=== PATIENT | female | born 1980 | race Asian ===

== ENCOUNTER 2016-11-23 07:59 | Emergency (ER) | payer OTHER ==
--- NOTE | 2016-11-23 08:19 | PDOC ---
History of Present Illness - General Chief Complaint: Respiratory Stated Complaint: COUGH X 4 DAYS Time Seen by Provider: 11/23/16 08:04 History Source: Patient Exam Limitations: No Limitations - History of Present Illness Initial Comments: 11/23/16 08:14 36-year-old female with past medical history of Crohn's disease, not currently on medications, presents to the emergency department for productive cough for 4 days. Denies fevers or chills. Patient is concerned as she is currently breast- feeding an infant. Reports possible sick contacts. Past History - Past Medical History Allergies/Adverse Reactions: Allergies Allergy/AdvReac Type Severity Reaction Status Date / Time No Known Allergies Allergy Verified 11/23/16 08:01 Home Medications: Ambulatory Orders Azithromycin 250 mg PO DAILY #6 tablet 11/23/16 Other medical history: CROHNS DISEASE - Psycho/Social/Smoking Cessation Hx Anxiety: No Suicidal Ideation: No Smoking History: Never smoked Have you smoked in the past 12 months: No Information on smoking cessation initiated: No Hx Alcohol Use: No Drug/Substance Use Hx: No Substance Use Type: None Review of Systems - Review of Systems Able to Perform ROS?: Yes Comments:: 11/23/16 08:17 GENERAL/CONSTITUTIONAL: No fever, weakness. HEAD, EYES, EARS, NOSE AND THROAT: No change in vision. No ear pain or discharge. No sore throat. CARDIOVASCULAR: No chest pain or shortness of breath. RESPIRATORY: +cough. No wheezing, or hemoptysis. GASTROINTESTINAL: No abdominal pain, nausea, vomiting, diarrhea, or decreased PO intolerance. GENITOURINARY: No dysuria, frequency, or change in urination. MUSCULOSKELETAL: No joint or muscle swelling or pain. No neck or back pain. SKIN: No rash NEUROLOGIC: No headache, vertigo, loss of consciousness, or change in strength/ sensation. ENDOCRINE: No increased thirst. No abnormal weight change. HEMATOLOGIC/LYMPHATIC: No anemia, easy bleeding, or history of blood clots. ALLERGIC/IMMUNOLOGIC: No hives or skin allergy. *Physical Exam - Vital Signs Last Vital Signs Temp Pulse Resp BP Pulse Ox 98.3 F 93 H 12 93/69 100 11/23/16 08:03 11/23/16 08:03 11/23/16 08:03 11/23/16 08:03 11/23/16 08:03 - Physical Exam Comments: 11/23/16 08:17 GENERAL: Awake, alert, and fully oriented, in no acute distress. HEAD: No signs of trauma EYES: PERRLA, EOMI, sclera anicteric, conjunctiva clear ENT: Auricles normal inspection, hearing grossly normal, nares patent, oropharynx clear without exudates. NECK: Normal ROM, supple, no lymphadenopathy, JVD, or masses LUNGS: Breath sounds equal, clear to auscultation bilaterally. No wheezes, and no crackles HEART: Regular rate and rhythm, normal S1 and S2, no murmurs, rubs or gallops ABDOMEN: Soft, nontender, normoactive bowel sounds. No guarding, no rebound. No masses EXTREMITIES: Normal range of motion, no edema. No clubbing or cyanosis. No cords, erythema, or tenderness NEUROLOGICAL: Cranial nerves II through XII grossly intact. Normal speech, normal gait SKIN: Warm, Dry, normal turgor, no rashes or lesions noted. Medical Decision Making - Medical Decision Making 11/23/16 08:17 Vital Signs Temp Pulse Resp BP Pulse Ox 98.3 F 93 H 12 93/69 100 11/23/16 08:03 11/23/16 08:03 11/23/16 08:03 11/23/16 08:03 11/23/16 08:03 Not concerned about BP as patient is thin and small. She is nontoxic appearing. Likely viral syndrome. However, given pt is a chron's and , I instructed pt that if she continues to feel ill for an additional 48 hours, she can start an azithromycin for bronchitis. Instructed mom to pump and dump while on azithromycin. Supportive care. I discussed the physical exam findings, ancillary test results and final diagnoses with the patient. I answered all of the patient's questions. The patient was satisfied with the care received and felt comfortable with the discharge plan and treatment plan. The patient will call their primary care physician within 24 hours to arrange follow-up and will return to the Emergency Department with any new, persistant or worsening symptoms. *DC/Admit/Observation/Transfer Diagnosis at time of Disposition: Viral syndrome - Discharge Dispostion Disposition: HOME Condition at time of disposition: Stable Admit: No - Prescriptions Prescriptions: Azithromycin 250 mg PO DAILY #6 tablet - Patient Instructions Printed Discharge Instructions: DI for Viral Syndrome Additional Instructions: 650 mg tylenol every 4 hours as needed for fever/body aches. If you continue to have symptoms for an additional 48 hour, take the azithromycin. While on the azithromycin, please pump and dump. Follow up with your primary care physician.
[2016-11-23 08:25] VITALS: BP 93/69; PULSE 93; TEMP 98.3; BMI 21.5
== END 2016-11-23 08:26 | disposition home or self-care (01) ==
LOC: FER 07:59
DX: B34.9 Viral infection, unspecified (principal); K50.90 Crohn's disease, unspecified, without complications
CPT/HCPCS: 99281-25

== ENCOUNTER 2016-12-14 09:02 | Emergency (ER) | payer OTHER ==
[2016-12-14 09:08] VITALS: BP 110/67; PULSE 82; TEMP 99.1; BMI 21.0
--- NOTE | 2016-12-14 09:14 | PDOC ---
History of Present Illness - General Chief Complaint: Respiratory Stated Complaint: COUGH, COLD SX, SCRATCHY THROAT Time Seen by Provider: 12/14/16 09:04 History Source: Patient Exam Limitations: No Limitations - History of Present Illness Initial Comments: 12/14/16 09:15 36 year old female c/ hx of chron's disease p/w dry cough and left earache x 5 days. +sick contacts with daughter and . Denies fevers. Has not taken any medications for the symptoms. Came in for an evaluation. Past History - Past Medical History Allergies/Adverse Reactions: Allergies Allergy/AdvReac Type Severity Reaction Status Date / Time No Known Allergies Allergy Verified 12/14/16 09:03 Home Medications: Ambulatory Orders NK [No Known Home Medication] 12/14/16 GI Disorders: Yes (CROHN'S) - Psycho/Social/Smoking Cessation Hx Anxiety: No Suicidal Ideation: No Smoking History: Never smoked Have you smoked in the past 12 months: No Hx Alcohol Use: No Drug/Substance Use Hx: No Substance Use Type: None Review of Systems - Review of Systems Able to Perform ROS?: Yes Comments:: 12/14/16 09:16 GENERAL/CONSTITUTIONAL: No fever, weakness. HEAD, EYES, EARS, NOSE AND THROAT: No change in vision or discharge. No sore throat. +Left ear ache. CARDIOVASCULAR: No chest pain or shortness of breath. RESPIRATORY: +dry cough. No wheezing, or hemoptysis. GASTROINTESTINAL: No abdominal pain, nausea, vomiting, diarrhea, or decreased PO intolerance. GENITOURINARY: No dysuria, frequency, or change in urination. MUSCULOSKELETAL: No joint or muscle swelling or pain. No neck or back pain. SKIN: No rash NEUROLOGIC: No headache, vertigo, loss of consciousness, or change in strength/ sensation. ENDOCRINE: No increased thirst. No abnormal weight change. HEMATOLOGIC/LYMPHATIC: No anemia, easy bleeding, or history of blood clots. ALLERGIC/IMMUNOLOGIC: No hives or skin allergy. *Physical Exam - Vital Signs Last Vital Signs Temp Pulse Resp BP Pulse Ox 99.1 F 82 18 110/67 99 12/14/16 09:02 12/14/16 09:02 12/14/16 09:02 12/14/16 09:02 12/14/16 09:02 - Physical Exam Comments: 12/14/16 09:17 GENERAL: Awake, alert, and fully oriented, in no acute distress. HEAD: No signs of trauma EYES: PERRLA, EOMI, sclera anicteric, conjunctiva clear ENT: Auricles normal inspection, hearing grossly normal, nares patent, oropharynx clear without exudates. TMs clear bilaterally. No exudates. Oropharynx normal and clear. NECK: Normal ROM, supple, no lymphadenopathy, JVD, or masses LUNGS: Breath sounds equal, clear to auscultation bilaterally. No wheezes, and no crackles HEART: Regular rate and rhythm, normal S1 and S2, no murmurs, rubs or gallops ABDOMEN: Soft, nontender, normoactive bowel sounds. No guarding, no rebound. No masses EXTREMITIES: Normal range of motion, no edema. No clubbing or cyanosis. No cords, erythema, or tenderness NEUROLOGICAL: Cranial nerves II through XII grossly intact. Normal speech, normal gait SKIN: Warm, Dry, normal turgor, no rashes or lesions noted. Medical Decision Making - Medical Decision Making 12/14/16 09:17 Vital Signs Temp Pulse Resp BP Pulse Ox 99.1 F 82 18 110/67 99 12/14/16 09:02 12/14/16 09:02 12/14/16 09:02 12/14/16 09:02 12/14/16 09:02 Patient's history and physical is suggestive of a viral syndrome. Physical exam is unremarkable. Supportive care. Return precautions given. I discussed the physical exam findings, ancillary test results and final diagnoses with the patient. I answered all of the patient's questions. The patient was satisfied with the care received and felt comfortable with the discharge plan and treatment plan. The patient will call their primary care physician within 24 hours to arrange follow-up and will return to the Emergency Department with any new, persistant or worsening symptoms. *DC/Admit/Observation/Transfer Diagnosis at time of Disposition: Viral syndrome - Discharge Dispostion Disposition: HOME Condition at time of disposition: Stable Admit: No - Referrals Referrals: Taylor Malhotra MD [Primary Care Provider] - - Patient Instructions Printed Discharge Instructions: DI for Viral Syndrome Additional Instructions: At this time, your ears and throat and lungs are normal on the physical exam. This is likely a virus. It may take several days before your symptoms improve. Take 650 mg tylenol every 4 hours and/or 600 mg ibuprofen every 6 hours as needed for symptoms. Drink plenty of fluids and rest. If you have fevers > 101 degrees, uncontrollable ear pain, please return to your doctor or to the ER for further evaluation.
== END 2016-12-14 09:21 | disposition home or self-care (01) ==
LOC: FER 09:02
DX: B34.9 Viral infection, unspecified (principal); K50.90 Crohn's disease, unspecified, without complications
CPT/HCPCS: 99283-25

== ENCOUNTER 2019-08-07 15:57 | Emergency (ER) | payer OTHER | END 2019-08-07 18:00 | disposition home or self-care (01) | LOC: FER 15:57 ==